=== PATIENT | female | born 1935 | race Caucasian/White ===

== ENCOUNTER 2018-11-23 21:53 | Observation (INO) | payer MEDICARE ==
--- NOTE | 2018-11-23 22:02 | Emergency Department Record ---
History of Present Illness - General Stated Complaint: chest jpain Time Seen by Provider: 11/23/18 21:57 Source: Patient Mode of Arrival: EMS Limitations: No limitations - History of Present Illness Initial Comments: 83 yo female presents to ED for evaluation of chest discomfort that began "this afternoon", reports pain migrated to the left upper extremity and has remained in the LUE since her symptoms started. Patient reports a history of stent placement [address] Jarrell, denies history of CHF at her baseline. Patient denies fevers, chills, or non-productive cough symptoms. Patient received ASA from EMS prior to arrival. MD Complaint: Chest pain Onset/Timin -: Hour(s) Pain Location: Substernal Pain Radiation: LUE Severity: Moderate Quality: Aching Consistency: Constant Improves With: Nothing Worsens With: Nothing Treatments Prior to Arrival: Aspirin - Related Data Home Medications Medication Instructions Recorded Confirmed Last Taken Amlodipine Besylate 2.5 mg PO DAILY 11/23/18 11/23/18 11/23/18 Aspirin [Low Dose Aspirin EC] 81 mg PO DAILY 11/23/18 11/23/18 11/23/18 Carvedilol [Coreg] 25 mg PO BID 11/23/18 11/23/18 11/23/18 Clonazepam 0.5 mg PO ASDIR 11/23/18 11/23/18 11/23/18 Gabapentin [Neurontin] 100 mg PO QHS 11/23/18 11/23/18 11/23/18 Hydrochlorothiazide [Hctz] 25 mg PO DAILY 11/23/18 11/23/18 11/23/18 Hydrocodone/Acetaminophen 5 mg PO Q8H PRN 11/23/18 11/23/18 11/23/18 [Hydrocodone/Acetaminophen 5mg/325mg] Insulin Glargine,Hum.rec.anlog 10 units SQ DAILY 11/23/18 11/23/18 11/23/18 [Lantus Solostar] Lisinopril 40 mg PO DAILY 11/23/18 11/23/18 11/23/18 Omeprazole 40 mg PO DAILY 11/23/18 11/23/18 11/23/18 Pravastatin Sodium [Pravachol] 40 mg PO DAILY 11/23/18 11/23/18 11/23/18 Allergies Allergy/AdvReac Type Severity Reaction Status Date / Time No Known Drug Allergies Allergy Verified 11/23/18 22:35 Review of Systems Constitutional: Denies: Chills, Fever, Malaise, Night sweats Eyes: Denies: Eye discharge, Eye pain ENT: Denies: Congestion, Ear pain, Epistaxis Respiratory: Denies: Cough, Dyspnea Cardiovascular: Reports: Chest pain. Denies: Dyspnea on exertion Endocrine: Denies: Fatigue, Heat or cold intolerance Gastrointestinal: Denies: Abdominal pain, Nausea, Vomiting Genitourinary: Denies: Incontinence, Retention Musculoskeletal: Denies: Arthralgia, Back pain Skin: Denies: Bruising, Change in color Neurological: Denies: Abnormal gait, Confusion, Headache, Seizure Psychiatric: Denies: Anxiety Hematological/Lymphatic: Denies: Anemia, Blood Clots Physical Exam - General General Appearance: Alert, Oriented x3, Cooperative, Mild distress Limitations: No limitations - Head Head exam: Atraumatic, Normocephalic, Normal inspection Head exam detail: negative: Abrasion, Contusion, Boyce's sign, General tenderness, Hematoma, Laceration - Eye Eye exam: Normal appearance. negative: Conjunctival injection, Periorbital swelling, Periorbital tenderness, Scleral icterus - ENT Ear exam: negative: Auricular hematoma, Auricular trauma Nasal Exam: negative: Active bleeding, Discharge, Dried blood, Foreign body Mouth exam: negative: Drooling, Laceration, Muffled voice, Tongue elevation - Neck Neck exam: Normal inspection. negative: Meningismus, Tenderness - Respiratory Respiratory exam: Normal lung sounds bilaterally. negative: Rales, Respiratory distress, Rhonchi, Stridor - Cardiovascular Cardiovascular Exam: Regular rate, Normal rhythm, Normal heart sounds - GI/Abdominal GI/Abdominal exam: Soft. negative: Rebound, Rigid, Tenderness - Rectal Rectal exam: Deferred - exam: Deferred - Extremities Extremities exam: Normal inspection. negative: Pedal edema, Tenderness - Back Back exam: Denies: CVA tenderness (R), CVA tenderness (L) - Neurological Neurological exam: Alert, Normal gait, Oriented X3 - Psychiatric Psychiatric exam: Normal affect, Normal mood - Skin Skin exam: Normal color. negative: Abrasion Type of lesion: negative: abrasion Course - Reevaluation(s) Reevaluation #1: 11/23/18 22:04 EKG: NSR [address] depression, T wave inversion V6 compared with previous (07/23/18) Reevaluation #2: 11/23/18 22:31 Laboratory studies were reviewed and are grossly unremarkable for an acute process. Will admit for further cardiac evaluation. Reevaluation #3: 11/24/18 06:49 Case was discussed with Elin Ruano NP, will accept admission at this time. Medical Decision Making - Lab Data Result diagrams: 11/23/18 21:50 11/23/18 21:50 Disposition Disposition: Admit Clinical Impression: CAD (coronary artery disease) Qualifiers: Coronary Disease-Associated Artery/Lesion type: unspecified vessel or lesion type [place] vs. transplanted heart: [place] heart Associated angina: with stable angina Qualified Code(s): I25.118 - Atherosclerotic heart disease of [place] coronary artery with other forms of angina pectoris Chest pain Qualifiers: Chest pain type: unspecified Qualified Code(s): R07.9 - Chest pain, unspecified Disposition: Still a Patient at [facility] Decision to Admit: Admit from ER Decision to Admit Date: 11/23/18 Decision to Admit Time: 22:32 Condition: (2) Stable Time of Disposition: 22:32 Quality - Quality Measures Quality Measures: N/A - Blood Pressure Screening Does Patient Have Any of the Following: Active Dx of HTN Blood Pressure Classification: Pre-Hypertensive BP Reading Systolic Measurement: 190 Diastolic Measurement: 85 Screening for High Blood Pressure: Patient Exclusion, Hx of HTN [[id number]]
[2018-11-23 22:05] LABS: BASO % 0.1 % (0-6); GRAN % 53.7 % (47-80); HEMATOCRIT 38.3 % (35.0-47.0); HEMOGLOBIN 12.4 gm/dl (11.6-16.0); LYMPH % 32.9 % (16-45); MEAN CELL VOLUME 93.6 fl (81-97); MEAN CORPUSCULAR HEMOGLOBIN 30.3 pg (27-33); MEAN CORPUSCULAR HGB CONC 32.4 g/dl (32-36); MEAN PLATELET VOLUME 10.3 fl (7.4-10.4); MONO % 11.3 % (0-9); PLATELET COUNT 208 K/uL (130-400); RED BLOOD COUNT 4.09 M/uL (3.80-5.40); RED CELL DISTRIBUTION WIDTH 13.3 % (11.5-14.5); WHITE BLOOD COUNT W/O DIFF 6.9 K/uL (4.2-12.2)
[2018-11-23 22:18] LABS: BLOOD UREA NITROGEN 25 mg/dL (8-23); EST GLOMERULAR FILTRATION RATE 57 mL/min
[2018-11-23 22:19] LABS: TOTAL PROTEIN 7.3 g/dL (6.6-8.7)
[2018-11-23 22:21] LABS: GLUCOSE,RANDOM 135 mg/dL (74-109)
[2018-11-23 22:23] LABS: ALT/SGPT 14 U/L (<33)
[2018-11-23 22:24] LABS: ALB/GLOB RATIO 1.4 (1.1-1.8); ALBUMIN 4.2 g/dL (4.0-5.0); ALKALINE PHOSPHATASE 58 U/L (45-87); AST/SGOT 17 U/L (10.0-35.0)
[2018-11-24] MEDS ORDERED: CARVEDILOL 12.5 MG TABLET PO ONE (00:22)
[2018-11-24] MEDS ORDERED: GABAPENTIN 100 MG CAPSULE PO SCH ×2 (00:25→22:00)
[2018-11-24] MEDS ORDERED: SIMVASTATIN 20 MG TABLET PO ONE (00:30)
[2018-11-24] MEDS: HYDROCODONE/APAP 5/325MG TABLET PO PRN ×2 (00:45→07:35)
[2018-11-24] MEDS ORDERED: PANTOPRAZOLE SODIUM 40 MG TABLET PO SCH (07:00)
[2018-11-24] MEDS ORDERED: CARVEDILOL 12.5 MG TABLET PO SCH (10:00)
[2018-11-24] MEDS ORDERED: HYDROCHLOROTHIAZIDE 25 MG TABLET PO SCH (10:00)
[2018-11-24] MEDS ORDERED: LEVEMIR FLEXTOUCH 100 UNIT/ML INSULIN PEN SQ SCH (10:00)
[2018-11-24] MEDS ORDERED: AMLODIPINE BESYLATE 5MG TAB PO SCH (10:00)
[2018-11-24] MEDS ORDERED: ASPIRIN 81 MG TABEC PO SCH (10:00)
[2018-11-24] MEDS ORDERED: LISINOPRIL 20 MG TABLET PO SCH (10:00)
--- NOTE | 2018-11-24 10:17 | History & Physical ---
History of Present Illness - Date of Service Date of Service for History & Physical: 11/26/18 - History of Present Illness Admitting Diagnosis: CAD. Chest pain History of Present Illness: Kirsty Flores is an 83 y.o. F who presented to the [facility] ED in the evening of 11/23/18 for left arm pain/numbness that started earlier that afternoon. Reports that she had been sitting in her recliner chair that afternoon when her left upper arm and hand went numb. She got up from her chair and started "working out" her arm and the pain/numbness went away. She completed some household activities and then sat back down in her chair and reports that her left arm had pain and numbness again. States that she has heard on the TV that left arm pain and numbness can be related to heart problems in women so she called EMS. Denied having any fever, chills, cough or difficulty breathing. Reports that she always has some SOB and lower extremity swelling at baseline but it has not worsened. Does follow with Dr. Jarrell. States she last saw him in August 2018 and that her next appointment is in January 2019. Does state that she had a stent placed approximately one year ago but is unable to provide much other detail on heart testing that has been done in the past year. She reports "Dr. Jarrell said I was perfectly fine at my last appointment." Reports that she does have "terrible" shoulders and a bad back. Sees Dr. Bryant with pain management and has steroid injections to her shoulders every 3 months. Reports that her last injections were about 6 weeks ago and that historically, the injections only last about 6 weeks. PMHx includes: OA, Hx of melanoma, HTN, hx of coronary artery stent, RLS, Diabetes, GERD and high cholesterol. PCP: Dr. Lambert ED Course: Vitals: BP 190/85, HR 60, RR 18, T 98.0, SPO2 95 RA EKG: EKG with Left BBB, Borderline ST depression Labs: Unremarkable 11/24/18 1000: Denies having any chest or left arm discomfort today. Denies having any CORIE. Wants to go home and f/u as an outpatient if "the testing so far looks good". Has concerns about getting home if she doesn't leave today. No changes in telemetry over night and cardiac enzymes continue to be negative. Travel Screening - Travel/Exposure Within Last 30 Days Have you traveled within the last 30 days?: No - Travel/Exposure Within Last Year Have you traveled outside the [place] in the last year?: No - Additonal Travel Details Have you been exposed to anyone with a communicable illness?: No - Travel Symptoms Symptom Screening: None Review of Systems Constitutional: Denies: Chills, Fever ENT: Denies: Congestion Respiratory: Denies: Cough, Dyspnea Cardiovascular: Reports: Edema (has not worsened). Denies: Chest pain, Dyspnea on exertion, Palpitations, Syncope Endocrine: Denies: Fatigue, Heat or cold intolerance Gastrointestinal: Denies: Abdominal pain, Nausea, Vomiting Genitourinary: Denies: Incontinence, Retention Musculoskeletal: Reports: Arthralgia (Back and bilateral shoulder pain pain). Denies: Back pain Skin: Denies: Bruising, Change in color Neurological: Denies: Abnormal gait, Confusion, Headache, Seizure Psychiatric: Denies: Anxiety Hematological/Lymphatic: Denies: Anemia, Blood Clots Past Medical History - SOCIAL HISTORY Smoking Status: Never smoker Alcohol Use: None Drug Use: None - RESPIRATORY Hx Respiratory Disorders: No - CARDIOVASCULAR Hx Cardio Disorders: Yes Hx Cardiac Cath: Yes (one stent) Hx Edema: Yes Hx Hypertension: Yes - NEURO Hx Neuro Disorders: No Hx Headaches: Yes - GI Hx GI Disorders: No - Hx Genitourinary Disorders: No - ENDOCRINE Hx Endocrine Disorders: Yes Hx Diabetes: Yes (DMII) - MUSCULOSKELETAL Hx Musculoskeletal Disorders: Yes Hx Arthritis: Yes - PSYCH Hx Psych Problems: No - HEMATOLOGY/ONCOLOGY Hx Hematology/Oncology Disorders: Yes Hx Cancer: Yes (melanoma R arm) Hx Chemotherapy: No Hx Radiation Therapy: No Family Medical History Any Significant Family History?: No H&P Meds/Allergies - Allergies Allergies: Allergies Allergy/AdvReac Type Severity Reaction Status Date / Time No Known Drug Allergies Allergy Verified 11/23/18 22:35 - Home Medications Home Medications Medication Instructions Recorded Confirmed Last Taken Amlodipine Besylate 2.5 mg PO DAILY 11/23/18 11/23/18 11/23/18 Aspirin [Low Dose Aspirin EC] 81 mg PO DAILY 11/23/18 11/23/18 11/23/18 Carvedilol [Coreg] 25 mg PO BID 11/23/18 11/23/18 11/23/18 Clonazepam 0.5 mg PO QHS PRN 11/23/18 11/24/18 11/23/18 Gabapentin [Neurontin] 100 mg PO QHS 11/23/18 11/23/18 11/23/18 Hydrochlorothiazide [Hctz] 25 mg PO DAILY 11/23/18 11/23/18 11/23/18 Hydrocodone/Acetaminophen 5 mg PO Q8H PRN 11/23/18 11/23/18 11/23/18 [Hydrocodone/Acetaminophen 5mg/325mg] Insulin Glargine,Hum.rec.anlog 10 units SQ DAILY 11/23/18 11/23/18 11/23/18 [Lantus Solostar] Lisinopril 40 mg PO DAILY 11/23/18 11/23/18 11/23/18 Omeprazole 40 mg PO DAILY 11/23/18 11/23/18 11/23/18 Pravastatin Sodium [Pravachol] 40 mg PO QHS 11/23/18 11/24/18 11/23/18 - Active Medications Active Medications: Current Medications Hydrocodone Bitart/Acetaminophen ([place] 5mg/325mg) 1 each PO Q8H PRN PRN Reason: pain Last Admin: 11/24/18 07:35 Dose: 1 each Amlodipine Besylate (Norvasc) 2.5 mg PO DAILY [facility] Last Admin: 11/24/18 09:35 Dose: 2.5 mg Aspirin (Ecotrin (Ec)) 81 mg PO DAILY [facility] Last Admin: 11/24/18 09:34 Dose: 81 mg Carvedilol (Coreg) 25 mg PO BID [facility] Last Admin: 11/24/18 09:33 Dose: 25 mg Clonazepam (Klonopin) 0.5 mg PO QHS PRN PRN Reason: RESTLESS LEGS Gabapentin (Neurontin) 100 mg PO QHS [facility] Last Admin: 11/24/18 00:45 Dose: 100 mg Hydrochlorothiazide (Hctz 25mg) 25 mg PO DAILY [facility] Last Admin: 11/24/18 09:34 Dose: 25 mg Insulin Detemir (Levemir Flextouch) 10 unit SQ DAILY [facility] Last Admin: 11/24/18 10:12 Dose: Not Given Lisinopril (Zestril) 40 mg PO DAILY [facility] Last Admin: 11/24/18 09:34 Dose: 40 mg Pantoprazole Sodium (Protonix) 80 mg PO DAILYAC [facility] Last Admin: 11/24/18 06:28 Dose: 80 mg Simvastatin (Zocor) 20 mg PO QHS [facility] Physical Exam - Vital Signs Vital Signs: Vital Signs - Last 24 Hrs Temp Pulse Pulse Resp BP BP Pulse Ox 11/24/18 08:00 98 F 57 L 17 154/65 95 11/24/18 00:03 98.9 F 57 L 20 178/66 96 11/23/18 23:05 57 L 20 185/79 96 11/23/18 21:58 98.0 F 60 18 190/85 95 - General General Appearance: Alert, Oriented x3, Cooperative, No acute distress Limitations: No limitations - Head Head exam: Atraumatic, Normocephalic, Normal inspection Head exam detail: negative: Abrasion, Contusion, Boyce's sign, General tenderness, Hematoma, Laceration - Eye Eye exam: Normal appearance. negative: Conjunctival injection, Periorbital swelling, Periorbital tenderness, Scleral icterus - ENT ENT exam: Mucous membranes moist Ear exam: negative: Auricular hematoma, Auricular trauma Nasal Exam: negative: Active bleeding, Discharge, Dried blood, Foreign body Mouth exam: negative: Drooling, Laceration, Muffled voice, Tongue elevation - Neck Neck exam: Normal inspection. negative: Meningismus, Tenderness - Respiratory Respiratory exam: Normal lung sounds bilaterally. negative: Rales, Respiratory distress, Rhonchi, Stridor - Cardiovascular Cardiovascular Exam: Regular rate, Normal rhythm, Normal heart sounds - GI/Abdominal GI/Abdominal exam: Soft, Normal bowel sounds. negative: Rebound, Rigid, Tenderness - Rectal Rectal exam: Deferred - exam: Deferred - Extremities Extremities exam: Normal inspection. negative: Pedal edema, Tenderness - Back Back exam: Denies: CVA tenderness (R), CVA tenderness (L) - Neurological Neurological exam: Alert, Normal gait, Oriented X3 - Psychiatric Psychiatric exam: Normal affect, Normal mood - Skin Skin exam: Normal color. negative: Abrasion Type of lesion: negative: abrasion Results - Labs Result Diagrams: 11/23/18 21:50 11/23/18 21:50 Labs Last 24 Hours: Laboratory Results - last 24 hr 11/23/18 11/23/18 11/24/18 21:50 21:50 06:30 WBC 6.9 RBC 4.09 Hgb 12.4 Hct 38.3 MCV 93.6 MCH 30.3 MCHC 32.4 RDW 13.3 Plt Count 208 MPV 10.3 Gran % 53.7 Lymphocytes % 32.9 Monocytes % 11.3 H Eosinophils % 2.0 Basophils % 0.1 Sodium 139 Potassium 3.9 Chloride 98 Carbon Dioxide 26.0 Anion Gap 15.0 BUN 25 H Creatinine 1.0 H Estimated GFR 57 Random Glucose 135 H Calcium 9.8 Total Bilirubin 0.30 AST 17 ALT 14 Alkaline Phosphatase 58 Troponin T < 0.010 < 0.010 NT-Pro-B Natriuret Pep 456.50 H Total Protein 7.3 Albumin 4.2 Globulin 3.1 Albumin/Globulin Ratio 1.4 VTE H&P Assessment - Risk for VTE Risk for VTE: Yes Risk Level: High Risk Assessment Date: 11/26/18 Risk Assessment Time: 09:30 VTE Orders Placed or Will Be Placed: Yes Plan - Detailed Diagnosis and Plan (1) Chest pain Status: Acute Qualifiers: Chest pain type: unspecified Qualified Code(s): R07.9 - Chest pain, unspecified Base Code: R07.9 - CHEST PAIN, UNSPECIFIED Comment: 11/24/18: - EKG: NSR Left BBB, borderline ST depression - Troponins negative x 2, BNP 456 - Follows with Dr. Jarrell, last saw in August 2018 - 1 stent placed in the last year - Continue Telemetry monitoring (2) DVT prophylaxis Status: Acute Base Code: [id number] - Comment: 11/24/18: - High risk d/t age - Nursing to encourage ambulation (3) Full code status Status: Acute Base Code: Z78.9 - OTHER SPECIFIED HEALTH STATUS Comment: 11/24: - Full code (4) CAD (coronary artery disease) Status: Acute Qualifiers: Coronary Disease-Associated Artery/Lesion type: unspecified vessel or lesion type [place] vs. transplanted heart: [place] heart Associated angina: with stable angina Qualified Code(s): I25.118 - Atherosclerotic heart disease of [place] coronary artery with other forms of angina pectoris Base Code: I25.10 - ATHSCL HEART DISEASE OF [place] CORONARY ARTERY W/O ANG PCTRS Comment: 11/24/18: -Stent placed approximately 1 year ago -Follows with Dr. Jarrell -Continue home doses of ASA, Coreg, Lisinopril, and Pravastatin
--- NOTE | 2018-11-24 11:40 | Discharge Summary ---
Providers Discharge Summary Date: 11/24/18 Date of admission: 11/23/18 23:06 Attending physician: PEREZ CARL Primary care physician: TABITHA MONTGOMERY M.D. Consults: Consult Orders 11/24/18 09:36 Consult - Cardiology NOW Consulting Provider: KIERSTEN VELOZ Physician Instructions: Reason For Exam: atypical chest pain Does pt have current jockey's agent?: Chantal Physical Exam - Vital Signs Vital Signs: Vital Signs - Last 24 Hrs Temp Pulse Pulse Resp BP BP Pulse Ox 11/24/18 08:00 98 F 57 L 17 154/65 95 11/24/18 00:03 98.9 F 57 L 20 178/66 96 11/23/18 23:05 57 L 20 185/79 96 11/23/18 21:58 98.0 F 60 18 190/85 95 - General General Appearance: Alert, Oriented x3, Cooperative, No acute distress Limitations: No limitations - Head Head exam: Atraumatic, Normocephalic, Normal inspection Head exam detail: negative: Abrasion, Contusion, Boyce's sign, General tenderness, Hematoma, Laceration - Eye Eye exam: Normal appearance. negative: Conjunctival injection, Periorbital swelling, Periorbital tenderness, Scleral icterus - ENT ENT exam: Mucous membranes moist Ear exam: negative: Auricular hematoma, Auricular trauma Nasal Exam: negative: Active bleeding, Discharge, Dried blood, Foreign body Mouth exam: negative: Drooling, Laceration, Muffled voice, Tongue elevation - Neck Neck exam: Normal inspection. negative: Meningismus, Tenderness - Respiratory Respiratory exam: Normal lung sounds bilaterally. negative: Rales, Respiratory distress, Rhonchi, Stridor - Cardiovascular Cardiovascular Exam: Regular rate, Normal rhythm, Normal heart sounds - GI/Abdominal GI/Abdominal exam: Soft. negative: Rebound, Rigid, Tenderness - Rectal Rectal exam: Deferred - exam: Deferred - Extremities Extremities exam: Normal inspection. negative: Pedal edema, Tenderness - Back Back exam: Denies: CVA tenderness (R), CVA tenderness (L) - Neurological Neurological exam: Alert, Normal gait, Oriented X3 - Psychiatric Psychiatric exam: Normal affect, Normal mood - Skin Skin exam: Normal color. negative: Abrasion Type of lesion: negative: abrasion Hospitalization - Hospitalization Admission Diagnosis: CAD. Chest pain - Problem List/Discharge Diagnosis (1) Chest pain Status: Acute Discharge Diagnosis: Chest pain type: unspecified Qualified Code(s): R07.9 - Chest pain, unspecified Base Code: R07.9 - CHEST PAIN, UNSPECIFIED Comment: 11/24/18: - EKG: NSR Left BBB, borderline ST depression - Troponins negative x 2, BNP 456 - Follows with Dr. Jarrell, last saw in August 2018 - 1 stent placed in the last year - Cause of left arm/chest pain likely musculoskeletal based on history - Outpatient Cardiology appointment set up for 11/27/18 - Continue Telemetry monitoring (2) CAD (coronary artery disease) Status: Acute Discharge Diagnosis: Coronary Disease-Associated Artery/Lesion type: unspecified vessel or lesion type [place] vs. transplanted heart: [place] heart Associated angina: with stable angina Qualified Code(s): I25.118 - Atherosclerotic heart disease of [place] coronary artery with other forms of angina pectoris Base Code: I25.10 - ATHSCL HEART DISEASE OF [place] CORONARY ARTERY W/O ANG PCTRS Comment: 11/24/18: -Stent placed approximately 1 year ago -Follows with Dr. Jarrell -Continue home doses of ASA, Coreg, Lisinopril, and Pravastatin (3) DVT prophylaxis Status: Acute Base Code: [id number] - Comment: 11/24/18: - High risk d/t age - Nursing to encourage ambulation (4) Full code status Status: Acute Base Code: Z78.9 - OTHER SPECIFIED HEALTH STATUS Comment: 11/24: - Full code - Hospitalization Course Disposition: Home, Self-Care Hospital Course: Kirsty Flores is an 83 y.o. F who presented to the [facility] ED in the evening of 11/23/18 for left arm pain/numbness that started earlier that afternoon. Reports that she had been sitting in her recliner chair that afternoon when her left upper arm and hand went numb. She got up from her chair and started "working out" her arm and the pain/numbness went away. She completed some household activities and then sat back down in her chair and reports that her left arm had pain and numbness again. States that she has heard on the TV that left arm pain and numbness can be related to heart problems in women so she called EMS. Denied having any fever, chills, cough or difficulty breathing. Reports that she always has some SOB and lower extremity swelling at baseline but it has not worsened. Does follow with Dr. Jarrell. States she last saw him in August 2018 and that her next appointment is in January 2019. Does state that she had a stent placed approximately one year ago but is unable to provide much other detail on heart testing that has been done in the past year. She reports "Dr. Jarrell said I was perfectly fine at my last appointment." Reports that she does have "terrible" shoulders and a bad back. Sees Dr. Bryant with pain management and has steroid injections to her shoulders every 3 months. Reports that her last injections were about 6 weeks ago and that historically, the injections only last about 6 weeks. PMHx includes: OA, Hx of melanoma, HTN, hx of coronary artery stent, RLS, Diabetes, GERD and high cholesterol. PCP: Dr. Montgomery ED Course: Vitals: BP 190/85, HR 60, RR 18, T 98.0, SPO2 95 RA EKG: EKG with Left BBB, Borderline ST depression Labs: Unremarkable 11/24/18 1000: Denies having any chest or left arm discomfort today. Denies having any CORIE. Wants to go home and f/u as an outpatient if "the testing so far looks good". Has concerns about getting home if she doesn't leave today. No changes in telemetry over night and cardiac enzymes continue to be negative. Procedures: Cardiology Procedures 11/23/18 21:58 EKG NOW 11/23/18 23:40 [employer]ement [employer] .Continuous Abnormal Labs: Abnormal Lab Results 11/23/18 11/23/18 Range/Units 21:50 21:50 Monocytes % 11.3 H (0-9) % BUN 25 H (8-23) mg/dL Creatinine 1.0 H (0.5-0.9) mg/dL Random Glucose 135 H (74-109) mg/dL NT-Pro-B Natriuret Pep 456.50 H (<450) pg/mL Condition at Discharge: (2) Stable Discharge Medications - Discharge Medications Home Medications: Ambulatory Orders Amlodipine Besylate 2.5 mg PO DAILY 11/23/18 [Last Taken 11/23/18] Aspirin [Low Dose Aspirin EC] 81 mg PO DAILY 11/23/18 [Last Taken 11/23/18] Carvedilol [Coreg] 25 mg PO BID 11/23/18 [Last Taken 11/23/18] Clonazepam 0.5 mg PO QHS PRN 11/23/18 [Last Taken 11/23/18] Gabapentin [Neurontin] 100 mg PO QHS 11/23/18 [Last Taken 11/23/18] Hydrochlorothiazide [Hctz] 25 mg PO DAILY 11/23/18 [Last Taken 11/23/18] Hydrocodone/Acetaminophen [Hydrocodone/Acetaminophen 5mg/325mg] 5 mg PO Q8H PRN 11/23/18 [Last Taken 11/23/18] Insulin Glargine,Hum.rec.anlog [Lantus Solostar] 10 units SQ DAILY 11/23/18 [ Last Taken 11/23/18] Lisinopril 40 mg PO DAILY 11/23/18 [Last Taken 11/23/18] Omeprazole 40 mg PO DAILY 11/23/18 [Last Taken 11/23/18] Pravastatin Sodium [Pravachol] 40 mg PO QHS 11/23/18 [Last Taken 11/23/18] Discharge Plan - Discharge Instructions Activity at Discharge: Increase Activity as Tolerated, Resume Usual Activities As Tolerated Diet at Discharge: Advance to Usual Diet Instructions: Chest Pain (DC) Additional Instructions: Follow up with [facility] at [facility] on 11/27 at 3:00 Follow up with Primary Care Physician in 1-2 weeks Quality Measures - Quality Measures Quality Measures: Advance Directives, Coronary Artery Disease: Antiplatelet Therapy, Documentation of Current Medications in Medical Record, Elder Maltreatment Screen and Follow-Up Plan, Screening for High Blood Pressure and F/ U Documented - Current Medications Quality Measure: Measure #130: Documentation of Current Medications Documentation of Current Medications: <Current Medications Documented/Reviewed> [G8427] - Blood Pressure Screening Quality Measure: Screening for High Blood Pressure and Follow-Up Documented Does Patient Have Any of the Following: Active Dx of HTN Blood Pressure Classification: Pre-Hypertensive BP Reading Systolic Measurement: 154 Diastolic Measurement: 65 Screening for High Blood Pressure: Patient Exclusion, Hx of HTN [G9744] - Coronary Artery Disease Quality Measure: Measure #6: Coronary Artery Disease (CAD) Antiplatelet Therapy: <ASA or clopidogrel prescribed> [4086F] - Advance Directives Quality Measure: Measure #47: Care Plan Advance Directives Established: No Advance Directives Information Provided To Patient: Already Provided Advance Directives on File: No Living Will: No Power of Maintenance Shop Clerk: No Advance Care Planning: <Care Plan/Decision Maker Not Decided; Discussed & Documented> [0144F] - Elder Abuse Suspicion Index Screening: Elder Abuse Suspicion Index Screening Rely on people for bathing, dressing, shopping, banking, etc: No Prevented from getting food, clothes, medication, etc: No Made to feel shamed or threatened by someone: No Forced to sign papers or use money against will: No Feel afraid, touched in ways not wanted or hurt physically: No Poor eye contact, withdrawn, malnourished, cuts or bruises: No Screening Result: Negative result EASI Reference Information: Sally DE LA ROSA, Dc C, Radha D, Franklin Keen.Development and validation of a tool to assist physicians identification of elder abuse: The Elder Abuse Suspicion Index (EASI ). Journal of Elder Abuse and Neglect, 2008; 20 (3): 276-300. - Elder Maltreatment Screen Quality Measures: Elder Maltreatment Screen and Follow-Up Plan Elder Maltreatment Screen: <Negative, No Follow-Up Plan Required> [G1007]
[2018-11-24] MEDS ORDERED: SIMVASTATIN 20 MG TABLET PO SCH ×2 (22:00)
[2018-11-24] MEDS ORDERED: CLONAZEPAM 1MG TABLET PO PRN (22:00)
== END 2018-11-24 13:40 | disposition home or self-care (01) ==
LOC: ER 21:53 → MEDSURG 23:06
PROVIDERS: ADMIT Internal Medicine; ATTEND Internal Medicine
DX: I25.118 Atherosclerotic heart disease of native coronary artery with other forms of angina pectoris (principal); I10 Essential (primary) hypertension; E03.9 Hypothyroidism, unspecified; E11.9 Type 2 diabetes mellitus without complications; Z79.4 Long term (current) use of insulin; E78.00 Pure hypercholesterolemia, unspecified; M19.90 Unspecified osteoarthritis, unspecified site; G25.81 Restless legs syndrome; Z85.820 Personal history of malignant melanoma of skin; Z95.5 Presence of coronary angioplasty implant and graft; Z66 Do not resuscitate
CPT/HCPCS: 85025; 80053; 84484 ×2; 83880; 93005; 93010; G0378 ×2; 99220; 99285